=== PATIENT | female | born 1970 | race Caucasian/White ===

== ENCOUNTER → 2016-09-02 | Outpatient (CLI) | payer BC ==
[~2016-09-02] MED LIST: BUSP10TA3 PO; CITA40TA14 PO; HYDR25SU38 RECTALLY; IBUP-1547 PO; PHEN-742 PO; PRAV20TA4 PO; TOPI50TA PO
== END ==
LOC: WC.BC 09:17
PROVIDERS: ATTEND Physician Assistant
DX: D48.62 Neoplasm of uncertain behavior of left breast (principal); N60.01 Solitary cyst of right breast; Z80.3 Family history of malignant neoplasm of breast; Z84.81 Family history of carrier of genetic disease; N63 Unspecified lump in breast
CPT/HCPCS: 76642; 77062; G0204